=== PATIENT | male | born 1965 | race Two or more races ===

== ENCOUNTER 2018-12-10 07:16 | Outpatient (CLI) | payer OTHER | END 2018-12-10 07:22 | disposition home or self-care (01) | LOC: RAD 07:16 | DX: R07.89 Other chest pain (principal); Z00.01 Encounter for general adult medical examination with abnormal findings; I10 Essential (primary) hypertension ==

== ENCOUNTER 2019-02-10 10:04 | Outpatient (CLI) | payer OTHER | END 2019-02-10 10:09 | disposition home or self-care (01) | LOC: NUCLEAR 10:04 | DX: I20.9 Angina pectoris, unspecified (principal) ==

== ENCOUNTER 2023-02-05 07:03 | Outpatient (CLI) | payer OTHER | END 2023-02-05 07:15 | disposition home or self-care (01) | LOC: SONOGRAMA 07:03 | PROVIDERS: ATTEND Internal Medicine Gastroenterology | DX: B19.20 Unspecified viral hepatitis C without hepatic coma (principal); K74.00 Hepatic fibrosis, unspecified ==